=== PATIENT | female | born 1930 | race Caucasian/White ===

== ENCOUNTER 2018-02-25 15:40 | Inpatient (IN) | payer MEDICARE, MEDICAID ==
--- NOTE | 2018-02-25 15:49 | ED Physician Chart ---
ED Chief Complaint/HPI - Patient Information Date Seen:: 02/25/18 Time Seen:: 15:40 Chief Complaint:: Agitation History of Present Illness:: onset x 3 days of agitation and aggressive behavior; no report of SIs, trauma, H /As, LOC, ALOC, AMS, neck pain, C/P, SOB, Abd. Pain, A/N/V/D/C, fever, chills, or urinary s/s Allergies:: Allergies Allergy/AdvReac Type Severity Reaction Status Date / Time MDX No Known Allergies - Nka Allergy Verified 09/15/15 13:48 [No Known Allergies - Nka] Historian:: Patient, EMS Review:: Nurse's Note Reviewed, Old Chart Reviewed, EMS run form Reviewed ED Review of Systems - Review of Systems General/Constitutional: No fever, No chills, No weight loss, No weakness, No diaphoresis, No edema, No loss of appetite Skin: No skin lesions, No rash, No bruising Head: No headache, No light-headedness Eyes: No loss of vision, No pain, No diplopia ENT: No earache, No nasal drainage, No sore throat, No tinnitus Neck: No neck pain, No swelling, No thyromegaly, No stiffness, No mass noted Cardio Vascular: No chest pain, No palpitations, No PND, No orthopnea, No edema Pulmonary: No SOB, No cough, No sputum, No wheezing GI: No nausea, No vomiting, No diarrhea, No pain, No melena, No hematochezia, No constipation, No hematemesis G/U: No dysuria, No frequency, No hematuria, No nacturia Finishing Range Supervisor: No vaginal discharge, No abnormal vaginal bleed, No contraction Musculoskeletal: No bone or joint pain, No back pain, No muscle pain Endocrine: No polyuria, No polydipsia Psychiatric: Prior psych history, Depression, Anxiety, No suicidal ideation, No homicidal ideation, No auditory hallucination, No visual hallucination Hematopoietic: No bruising, No lymphadenopathy Allergic/Immuno: No urticaria, No angioedema Neurological: No syncope, No focal symptoms, No weakness, No paresthesia, No headache, No seizure, No dizziness, Confusion, No vertigo ED Past Medical History - Past Medical History Obtainable: Yes Past Medical History: HTN, Dementia Family History: HTN Social History: Non Smoker, No Alcohol, No Drug Use, Single, Care Facility Surgical History: None Psychiatricy History: Bipolar, Dementia Medication: Reviewed Family Medical History - Family Member Mother History Unknown: Yes Ethnicity: Living Status: Unknown Hx Family Cancer: (unknown) Hx Family Coronary Artery Disease: (unknown) Hx Family Congestive Heart Failure: (unknown) Hx Family Hypertension: (unknown) Hx Family Stroke: (unknown) Hx Family Diabetes: (unknown) Hx Family Seizures: (unknown) Hx Family Dementia: (unknown) Hx Family AIDS: (unknown) Hx Family HIV: No Hx Family COPD: (unknown) Hx Family Hepatitis: (unknown) Hx Family Psychiatric Problems: (unknown) Hx Family Tuberculosis: (unknown) ED Physical Exam - Physical Examination General/Constitutional: Awake, Well-developed, well-nourished, Alert, No distress, GCS 15, Non-toxic appearing, Ambulatory Head: Atraumatic Eyes: Lids, conjuctiva normal, PERRL, EOMI Skin: Nl inspection, No rash, No skin lesions, No ecchymosis, Well hydrated, No lymphadenopathy ENMT: External ears, nose nl, TM canals nl, Nasal exam nl, Lips, teeth, gums nl , Oropharynx nl, Tonsils nl Neck: Nontender, Full ROM w/o pain, No JVD, No nuchal rigidity, No bruit, No mass, No stridor Respiratory: Nl effort/Exclusion, Clear to Auscultation, No Wheeze/Rhonchi/Rales Cardio Vascular: RRR, No murmur, gallop, rubs, NL S1 S2, Carotid/Femoral/Distal pulses equal bilaterally GI: No tenderness/rebounding/guarding, No organomegaly, No hernia, Normal BS's, Nondistended, No mass/bruits, No McBurney tenderness : No CVA tenderness Extremities: No tenderness or effusion, Full ROM, normal strength in all extremities, No edema, Normal digits & nails Neuro/Psych: Alert/oriented, DTR's symmetric, Normal sensory exam, Normal motor strength, Judgement/insight normal, Mood normal, Normal gait, No focal deficits Other Neuro/Psych comments:: + Psychomotor Agitation; no SIs; Disoriented and confused; Mood/Affect: Stable Misc: Normal back, No paraspinal tenderness ED Labs/Radiology/EKG Results - Lab Results Comments:: unremarkable - EKG Interpretations EKG Time:: 16:15 Rate & Rhythm: 71; NSR Comments:: non-specific st-t changes ED Septic Shock - . Is Septic Shock (SBP<90, OR Lactate>4 mmol\L) present?: No ED Reassessment (Disposition) - Reassessment Reassessment Condition:: Improved - Diagnosis Diagnosis:: Agitation; Psychosis; Bipolar Disorder; Medical Clearance - Aftercare/Follow up Instructions Aftercare/Follow-Up Instructions:: Counseled pt regarding lab results/diagnosis & need follow up, Counseled pt & family regarding lab results/diagnosis & need follow up - Patient Disposition Discharge/Transfer:: Acute Care w/in this hosp Admitted to:: [facility] Condition at Disposition:: Stable, Improved
[2018-02-25 16:02] LABS: % EOSINOPHILS 1.5 % (0.0-5.0); % LYMPHOCYTES 36.2 % (20.0-50.0); % MONOCYTES 7.6 % (2.0-10.0); % NEUTROPHILS 54.7 % (40.0-80.0); EOSINOPHILE ABSOLUTE 0.1 Th/cmm (0.1-0.4); HEMATOCRIT 40.1 % (41.0-60); HEMOGLOBIN 13.6 gm/dL (12-16); LYMPHOCYTE ABSOLUTE 2.6 Th/cmm (1.5-3.0); MEAN CELL VOLUME 89.8 fl (81-100); MEAN CORPUSCULAR HEMOGLOBIN 30.4 pg (27.0-31.0); MEAN CORPUSCULAR HGB CONC 33.8 pg (28.0-36.0); MEAN PLATELET VOLUME 8.2 fl; MONOCYTE ABSOLUTE 0.5 Th/cmm (0.3-1.0); PLATELET COUNT 212 Th/cmm (150-400); RED BLOOD COUNT 4.46 Mil/cmm (3.80-5.20); RED CELL DISTRIBUTION WIDTH 13.2 % (11.5-20.0); WHITE BLOOD COUNT 7.2 Th/cmm (4.8-10.8)
[2018-02-25 16:18] LABS: ACETAMINOPHEN < 10.0 ug/mL (10.0-30.0); ALB/GLOB RATIO 1.2 (1.0-1.8); ALBUMIN 3.9 gm/dL (3.7-5.3); ALKALINE PHOSPHATASE 71 U/L (34-104); ANION GAP 11.7 (7.0-16.0); BILIRUBIN,TOTAL 0.2 mg/dL (0.3-1.0); BUN - UREA NITROGEN 22 mg/dL (7-25); CALCIUM SERUM 9.2 mg/dL (8.6-10.3); CARBON DIOXIDE 25.1 mEq/L (21.0-31.0); CHLORIDE 105 mEq/L (98-107); CHOLESTEROL 169 mg/dL (<200); CREATININE - SERUM 0.7 mg/dL (0.6-1.2); GLUCOSE 160 mg/dL (70-105); HDL -HIGH DENSITY LIPOPROTEIN 53 mg/dL (23-92); POTASSIUM SERUM 3.8 mEq/L (3.5-5.1); SALICYLATES (ASPIRIN) < 25.0 mg/L (30.0-100.0); SGOT 15 U/L (13-39); SGPT/ALT 13 U/L (7-52); SODIUM SERUM 138 mEq/L (136-145); TOTAL PROTEIN,SERUM 7.3 gm/dL (6.0-8.3); TRIGLYCERIDES 131 mg/dL (<150)
[2018-02-25 16:41] LABS: URINE MICROSCOPIC INDICATED? YES; URINE SOURCE CLEAN C
[2018-02-25 16:43] LABS: URINE BILIRUBIN NEGATIVE (NEGATIVE); URINE BLOOD NEGATIVE (NEGATIVE); URINE GLUCOSE (UA) NEGATIVE (NEGATIVE); URINE KETONE NEGATIVE (NEGATIVE); URINE LEUKOCYTE ESTERASE SMALL (NEGATIVE); URINE NITRATE NEGATIVE (NEGATIVE); URINE PROTEIN NEGATIVE (NEGATIVE); URINE UROBILINOGEN 0.2 E.U./dL (0.2 - 1.0)
[2018-02-25 16:47] LABS: URINE CLARITY CLEAR (CLEAR); URINE COLOR YELLOW
[2018-02-25 16:50] LABS: URINE BACTERIA NONE SEEN /hpf (NONE SEEN); URINE EPITHELIAL CELLS FEW /lpf (FEW); URINE RBC NONE SEEN /hpf (0-5); URINE WBC 0-2 /hpf (0-5)
[2018-02-25 17:01] LABS: AMPHETAMINE URINE NEGATIVE (NEGATIVE); BARBITURATES URINE NEGATIVE (NEGATIVE); BENZODIAZEPINES QUAL URINE NEGATIVE (NEGATIVE); CANNABINOID THC NEGATIVE (NEGATIVE); COCAINE METABOLITE QUAL URINE NEGATIVE (NEGATIVE); METHADONE URINE NEGATIVE (NEGATIVE); METHAMPHETAMINES QUAL URINE NEGATIVE (NEGATIVE); OPIATES (MORPHINE) QUAL. URINE NEGATIVE (NEGATIVE); PHENCYCLIDINE (PCP) URINE NEGATIVE (NEGATIVE); TRICYCLICS (TCA) QUAL. URINE NEGATIVE (NEGATIVE)
[2018-02-25 19:36] VITALS: BP 140/56
[2018-02-25] MEDS ORDERED: Magnesium Hydroxide (MOM) 30 mL UDC PO PRN ×2 (21:12→21:17)
[2018-02-25] MEDS ORDERED: Fleet Enema 135 mL RC PRN (21:17)
[2018-02-26] MEDS: Calcium Carb/Vit D 500 mg/200 U Tab PO SCH ×2 (09:31→09:39)
[2018-02-26] MEDS: Multivitamin w/ Minerals Tab PO SCH ×2 (09:31→09:39)
[2018-02-26] MEDS: Aspirin 81mg Chewable Tab PO SCH ×2 (09:31→09:37)
--- NOTE | 2018-02-26 12:09 | History & Physical ---
ADMIT DATE: 02/25/2018 IDENTIFYING INFORMATION: The patient is an 87-year-old female. CHIEF COMPLAINT: No information. HISTORY OF PRESENT ILLNESS: The patient was admitted because of increasing agitation, aggressive behavior, very agitated for the last 3 days prior to admission. There is no homicidal ideation. No report of suicidal ideation. The patient herself was a poor historian, talked to her through a senior firmware engineer, was a very poor historian, she was confused. I am not sure if she is demented or psychotic as she is unable to give information and she is 87 years of age, so she may as be demented. PAST PSYCHIATRIC HISTORY: Unobtainable. MEDICAL HISTORY: The patient also with a history also of bipolar disorder. FAMILY AND SOCIAL HISTORY: When I talked to her through a senior firmware engineer, she believes, she is in her 30s. She was unable to tell where she lives, why she is here. She is unable to tell how many children she has, so she is a poor historian. MENTAL STATUS EXAMINATION: The patient is appropriately dressed, not well groomed. She looked younger than her stated age though she seems to be confused, she believes she is in her 30s, unable to participate in memory testing ____ her long and short term memory is poor. Unable tell her age, where she live, why she is here. Insight and judgment is impaired. She was very agitated and psychotic upon admission. IMPRESSION: AXIS I: Psychosis, not otherwise specified, dementia. Her medical doctor deferred to the medical health insurance to get help. Negative poor coping skills. INITIAL TREATMENT PLAN: 1. The patient will be continued with the Namenda and Aricept, which she is on. We will examine the need for adding more medications for her. We will do group therapy, milieu therapy, and individual therapy. ESTIMATED LENGTH OF STAY: 3-7 days. DISCHARGE CRITERIA: Decreasing agitation, psychosis and after discharge, outpatient treatment. [facility]# [id number]
[2018-02-26 19:38] LABS: A1C % 5.9 % (4.0-6.0)
[2018-02-27] MEDS: Aspirin 81mg Chewable Tab PO SCH (08:28)
[2018-02-27] MEDS: Multivitamin w/ Minerals Tab PO SCH (08:28)
[2018-02-27] MEDS: Calcium Carb/Vit D 500 mg/200 U Tab PO SCH (08:28)
--- NOTE | 2018-02-27 14:35 | Internal Medicine Prog Note ---
Internal Medicine Subjective - Subjective Service Date: 02/27/18 ([facility] DICTATED [id number]) Internal Medicine Objective - Results Result Diagrams: 02/25/18 15:54 02/25/18 15:54 Recent Labs: Laboratory Last Values WBC 7.2 Th/cmm (4.8-10.8) 02/25/18 15:54 RBC 4.46 Mil/cmm (3.80-5.20) 02/25/18 15:54 Hgb 13.6 gm/dL (12-16) 02/25/18 15:54 Hct 40.1 % (41.0-60) L 02/25/18 15:54 MCV 89.8 fl (81-100) 02/25/18 15:54 MCH 30.4 pg (27.0-31.0) 02/25/18 15:54 MCHC Differential 33.8 pg (28.0-36.0) 02/25/18 15:54 RDW 13.2 % (11.5-20.0) 02/25/18 15:54 Plt Count 212 Th/cmm (150-400) 02/25/18 15:54 MPV 8.2 fl 02/25/18 15:54 Neutrophils % 54.7 % (40.0-80.0) 02/25/18 15:54 Lymphocytes % 36.2 % (20.0-50.0) 02/25/18 15:54 Monocytes % 7.6 % (2.0-10.0) 02/25/18 15:54 Eosinophils % 1.5 % (0.0-5.0) 02/25/18 15:54 Basophils % 0.0 % (0.0-2.0) 02/25/18 15:54 Sodium 138 mEq/L (136-145) 02/25/18 15:54 Potassium 3.8 mEq/L (3.5-5.1) 02/25/18 15:54 Chloride 105 mEq/L (98-107) 02/25/18 15:54 Carbon Dioxide 25.1 mEq/L (21.0-31.0) 02/25/18 15:54 Anion Gap 11.7 (7.0-16.0) 02/25/18 15:54 BUN 22 mg/dL (7-25) 02/25/18 15:54 Creatinine 0.7 mg/dL (0.6-1.2) 02/25/18 15:54 Est GFR ( Amer) TNP 02/25/18 15:54 Est GFR (Non-Af Amer) TNP 02/25/18 15:54 BUN/Creatinine Ratio 31.4 02/25/18 15:54 Glucose 160 mg/dL (70-105) H 02/25/18 15:54 Hemoglobin A1c % 5.9 % (4.0-6.0) 02/25/18 15:54 Calcium 9.2 mg/dL (8.6-10.3) 02/25/18 15:54 Total Bilirubin 0.2 mg/dL (0.3-1.0) L 02/25/18 15:54 AST 15 U/L (13-39) 02/25/18 15:54 ALT 13 U/L (7-52) 02/25/18 15:54 Alkaline Phosphatase 71 U/L (34-104) 02/25/18 15:54 Total Protein 7.3 gm/dL (6.0-8.3) 02/25/18 15:54 Albumin 3.9 gm/dL (3.7-5.3) 02/25/18 15:54 Globulin 3.4 gm/dL 02/25/18 15:54 Albumin/Globulin Ratio 1.2 (1.0-1.8) 02/25/18 15:54 Triglycerides 131 mg/dL (<150) 02/25/18 15:54 Cholesterol 169 mg/dL (<200) 02/25/18 15:54 LDL Cholesterol Direct 107 mg/dL (75-193) 02/25/18 15:54 HDL Cholesterol 53 mg/dL (23-92) 02/25/18 15:54 TSH 0.55 uIU/ml (0.34-5.60) 02/25/18 15:54 Urine Source CLEAN C 02/25/18 16:00 Urine Color YELLOW 02/25/18 16:00 Urine Clarity CLEAR (CLEAR) 02/25/18 16:00 Urine pH 6.0 (4.6 - 8.0) 02/25/18 16:00 Ur Specific [place] 1.025 (1.005-1.030) 02/25/18 16:00 Urine Protein NEGATIVE mg/dL (NEGATIVE) 02/25/18 16:00 Urine Glucose (UA) NEGATIVE mg/dL (NEGATIVE) 02/25/18 16:00 Urine Ketones NEGATIVE mg/dL (NEGATIVE) 02/25/18 16:00 Urine Blood NEGATIVE (NEGATIVE) 02/25/18 16:00 Urine Nitrate NEGATIVE (NEGATIVE) 02/25/18 16:00 Urine Bilirubin NEGATIVE (NEGATIVE) 02/25/18 16:00 Urine Urobilinogen 0.2 E.U./dL (0.2 - 1.0) 02/25/18 16:00 Ur Leukocyte Esterase SMALL (NEGATIVE) H 02/25/18 16:00 Urine RBC NONE SEEN /hpf (0-5) 02/25/18 16:00 Urine WBC 0-2 /hpf (0-5) 02/25/18 16:00 Ur Epithelial Cells FEW /lpf (FEW) 02/25/18 16:00 Urine Bacteria NONE SEEN /hpf (NONE SEEN) 02/25/18 16:00 Salicylates < 25.0 mg/L (30.0-100.0) L 02/25/18 15:54 Urine Opiates Screen NEGATIVE (NEGATIVE) 02/25/18 16:00 Urine Methadone Screen NEGATIVE (NEGATIVE) 02/25/18 16:00 Acetaminophen < 10.0 ug/mL (10.0-30.0) L 02/25/18 15:54 Ur Barbiturates Screen NEGATIVE (NEGATIVE) 02/25/18 16:00 Ur Tricyclics Screen NEGATIVE (NEGATIVE) 02/25/18 16:00 Ur Phencyclidine Scrn NEGATIVE (NEGATIVE) 02/25/18 16:00 Amphetamines Screen NEGATIVE (NEGATIVE) 02/25/18 16:00 U Methamphetamines Scrn NEGATIVE (NEGATIVE) 02/25/18 16:00 U Benzodiazepines Scrn NEGATIVE (NEGATIVE) 02/25/18 16:00 U Cocaine Metab Screen NEGATIVE (NEGATIVE) 02/25/18 16:00 U Cannabinoids Screen NEGATIVE (NEGATIVE) 02/25/18 16:00 Ethyl Alcohol < 10 mg/dL (0-10) 02/25/18 15:54 - Physical Exam Vitals and I&O: Vital Signs Temp 97.9 F 02/26/18 15:41 Pulse 73 02/26/18 15:41 Resp 20 02/26/18 15:41 BP 114/55 02/26/18 15:41 Pulse Ox 96 02/26/18 15:41 Intake & Output 02/26/18 02/27/18 02/27/18 18:59 06:59 18:59 Intake Total 960 Balance 960 Intake: Oral 960 Other: # Voids 3 # Bowel Movements 0 Active Medications: Current Medications Acetaminophen (Tylenol) 650 mg PO Q4HR PRN PRN Reason: Mild Pain / Temp above 100 Stop: 04/26/18 21:11 Acetaminophen (Tylenol) 325 mg PO Q6H PRN PRN Reason: Pain Stop: 04/26/18 21:16 Aspirin (Aspirin Chewable) 81 mg PO DAILY [facility] Stop: 04/27/18 08:59 Last Admin: 02/27/18 08:28 Dose: Not Given Bisacodyl (Dulcolax 10 Mg Supp) 10 mg RC DAILY PRN PRN Reason: IF MOM INEFFECTIVE Stop: 04/26/18 21:16 Calcium/Vitamin D (Oscal W/Vitamin D) 1 tab PO DAILY [facility] Stop: 04/27/18 08:59 Last Admin: 02/27/18 08:28 Dose: Not Given Divalproex Sodium (Depakote Er) 250 mg PO Q12HR MAC PRN Reason: Protocol Stop: 04/28/18 20:59 Docusate Sodium (Colace) 100 mg PO BID [facility] Stop: 04/27/18 08:59 Last Admin: 02/27/18 08:31 Dose: Not Given Donepezil HCl (Aricept) 10 mg PO HS MAC Stop: 04/27/18 20:59 Last Admin: 02/26/18 20:35 Dose: 10 mg Lorazepam (Ativan) 0.5 mg PO Q4HR PRN; Protocol PRN Reason: Anxiety Stop: 03/27/18 21:11 Magnesium Hydroxide (Milk Of Magnesia) 30 ml PO HS PRN PRN Reason: Constipation Magnesium Hydroxide (Milk Of Magnesia) 30 ml PO HS PRN PRN Reason: Constipation Stop: 04/26/18 21:16 Memantine (Namenda) 10 mg PO BID MAC Stop: 04/27/18 08:59 Last Admin: 02/27/18 08:28 Dose: Not Given Sodium Phosphate (Fleet Enema) 135 ml RC Q48H PRN PRN Reason: IF DULCOLAX INEFFECTIVE Stop: 04/26/18 21:16 Zolpidem Tartrate (Ambien) 5 mg PO HS PRN PRN Reason: Insomnia Stop: 04/26/18 21:11 - Procedures Procedures: Procedures Procedure Code Date GROUP PSYCHOTHERAPY 17876 09/15/15 GROUP PSYCHOTHERAPY [id number] 09/15/15 OTHER GROUP THERAPY 94.44 03/04/15
--- NOTE | 2018-02-27 15:44 | History & Physical ---
ADMIT DATE: 02/27/2018 CHIEF COMPLAINT: Agitation. HISTORY OF PRESENT ILLNESS: This is an 87-year-old female who is a [facility] resident who is admitted to the Geropsych Unit due to a 3-day history of agitation and aggressive behavior towards nursing staff. PAST MEDICAL HISTORY: Hypertension, dementia. FAMILY HISTORY: Noncontributory. SOCIAL HISTORY: The patient is a [facility] resident requiring 24-hour nursing care. SURGICAL HISTORY: Unknown. MEDICATIONS: Please see medications list. REVIEW OF SYSTEMS: GENERAL: Denies any fevers and chills. CARDIOVASCULAR: Denies chest pain. RESPIRATORY: Denies shortness of breath. GASTROINTESTINAL: Denies nausea, vomiting, abdominal pain. GENITOURINARY: Denies increased frequency or dysuria. NEUROLOGIC: Not headaches, seizures, or syncope. All other systems are reviewed and are negative. PHYSICAL EXAMINATION: GENERAL: The patient is well developed, well nourished, no acute distress. VITAL SIGNS: Temperature 97.9, heart rate 72, blood pressure 114/55, respirations 20, O2 96%. HEENT: Head; normocephalic, atraumatic. NECK: Supple. No mass. LUNGS: Clear bilaterally. HEART: Regular rate and rhythm. ABDOMEN: Soft, nontender. LABORATORY DATA: WBC 7.2, H and H 13.6 and 40.1, platelet of 212. Sodium 138, potassium 3.8, chloride 105, BUN 22, creatinine 0.7. ASSESSMENT: Hypertension, dementia, agitation and aggressive behavior. PLAN: Fall precautions will be initiated. We will continue to follow this patient. [facility]# [id number]
--- NOTE | 2018-02-27 17:42 | Progress Notes ---
DATE: 02/27/2018 Case was discussed with staff and patient's records. The patient continues to be unpredictable, impulsive, internally preoccupied, stays to herself. She also refused to take medication. When I talked to her about it she said no medicine. She is on Namenda and Aricept. The patient was very agitated prior to coming here. I will be adding a small dose of Depakote on her to help with her impulsivity and hopefully she will be willing to take it and aggressive behavior and we will continue outpatient group therapy, milieu therapy, adjust medication as needed. JOB# [id number]
[2018-02-28] MEDS: Aspirin 81mg Chewable Tab PO SCH (09:01)
[2018-02-28] MEDS: Calcium Carb/Vit D 500 mg/200 U Tab PO SCH (09:01)
[2018-02-28] MEDS: Multivitamin w/ Minerals Tab PO SCH (09:02)
--- NOTE | 2018-02-28 21:22 | Progress Notes ---
DATE: 02/28/2018 SUBJECTIVE: Case was discussed with the staff of the patient and reviewed records. The patient as reported by staff is isolating herself, continues to be unable to make a safe plan for her self-care, continues to be unpredictable, impulsive, needing redirection; however, in general her aggressive behavior is better. She is easier to redirect. She denies any current intent to harm herself or anyone. She has been refusing her medication and when I tried to talk to her about this, she would not give me any answer. She said she would not take any medication. Still working on discharge plan. She is on Aricept 10 mg at bedtime, Depakote 250 mg twice a day. She is not taking her medication, sometimes selective about taking it. She is also on Namenda 10 mg twice a day. I will continue the patient in group therapy, milieu therapy, and adjust medications as needed. JOB# [id number]
[2018-03-01] MEDS: Calcium Carb/Vit D 500 mg/200 U Tab PO SCH (09:07)
[2018-03-01] MEDS: Aspirin 81mg Chewable Tab PO SCH (09:07)
[2018-03-01] MEDS: Multivitamin w/ Minerals Tab PO SCH (09:08)
--- NOTE | 2018-03-01 10:13 | Progress Notes ---
DATE: 03/01/2018 SUBJECTIVE: The patient was seen in her room, lying in the bed. The patient is asleep but easily arousable; otherwise, the patient appears to be in no acute distress. Per staff nurses, the patient has been refusing to take her medication, but no aggressive behavior is noted at this time. OBJECTIVE: VITAL SIGNS: Temperature 99.7, heart rate 65, blood pressure 152/84, respiration of 18, and 97% on room air. HEENT: Head is atraumatic and normocephalic. Eyes: Bilateral conjunctivae are clear. Bilateral pupils are equally round and reactive. NECK: Supple. No JVD. CARDIOVASCULAR: S1 and S2, without murmur. PULMONARY: Clear to auscultation. GASTROINTESTINAL: Soft and nontender without guarding. Positive bowel sounds. MUSCULOSKELETAL: No clubbing. No cyanosis noted. ASSESSMENT: 1. Dementia. 2. Insomnia. 3. Osteoarthritis. PLAN: We will keep the patient inpatient. We will follow up with a psychiatrist to monitor the patient's condition and behavior. Treatment plans were discussed with the patient's nurse. Treatment has been discussed with Dr. Murphy. [facility]# [id number]
--- NOTE | 2018-03-01 17:18 | Progress Notes ---
DATE: SUBJECTIVE: The patient was seen and evaluated. The patient's chart reviewed. Nursing staff reported the patient being disengaged, withdrawn, refusing medications. Today on [id number] evaluation, the patient is extremely confused and does not know exactly where she is. She believes she in [place], but she is calm, cooperative in room. MENTAL STATUS EXAMINATION: Neurocognitively impaired, disengaged. ASSESSMENT AND PLAN: The patient is an 87-year-old female, severely neurocognitively impaired, disorganized. We will continue obtaining more collateral information and obtaining more information in regards to the patient's family as she continues to refuse her medications and nonredirectable. We will continue with the current medication and primary treatment and goals, which includes Aricept, Depakote and Namenda. JOB# [id number]
--- NOTE | 2018-03-02 10:09 | Progress Notes ---
DATE: 03/02/2018 The patient was seen and evaluated. The patient's chart reviewed. Covering for Dr. Dutton. Today on [id number] evaluation, the patient continues to be confused, does not know exactly where she is, but she has been redirectable, although denying medications. MENTAL STATUS EXAMINATION: Poor insight, neurocognitive impaired severe, needs a lot of ADL redirection. ASSESSMENT AND PLAN: The patient is an 87-year-old female, severely cognitively impaired, continue working very closely with the transplant case manager for a safe dispo. She needs a lot of ADL redirections to provide simple activities such as feeding, clothing. Therefore, gravely disabled secondary to the patient's severe neurocognitive impairment. JOB# [id number]
[2018-03-02] MEDS: Calcium Carb/Vit D 500 mg/200 U Tab PO SCH (11:09)
[2018-03-02] MEDS: Aspirin 81mg Chewable Tab PO SCH (11:09)
[2018-03-02] MEDS: Multivitamin w/ Minerals Tab PO SCH (11:09)
--- NOTE | 2018-03-02 11:31 | General Progress Note ---
Subjective - Review of Systems Events since last encounter: patient confused with no signs of pain noncompliant with meds Objective - Results Result Diagrams: 02/25/18 15:54 02/25/18 15:54 Recent Labs: Laboratory Last Values WBC 7.2 Th/cmm (4.8-10.8) 02/25/18 15:54 RBC 4.46 Mil/cmm (3.80-5.20) 02/25/18 15:54 Hgb 13.6 gm/dL (12-16) 02/25/18 15:54 Hct 40.1 % (41.0-60) L 02/25/18 15:54 MCV 89.8 fl (81-100) 02/25/18 15:54 MCH 30.4 pg (27.0-31.0) 02/25/18 15:54 MCHC Differential 33.8 pg (28.0-36.0) 02/25/18 15:54 RDW 13.2 % (11.5-20.0) 02/25/18 15:54 Plt Count 212 Th/cmm (150-400) 02/25/18 15:54 MPV 8.2 fl 02/25/18 15:54 Neutrophils % 54.7 % (40.0-80.0) 02/25/18 15:54 Lymphocytes % 36.2 % (20.0-50.0) 02/25/18 15:54 Monocytes % 7.6 % (2.0-10.0) 02/25/18 15:54 Eosinophils % 1.5 % (0.0-5.0) 02/25/18 15:54 Basophils % 0.0 % (0.0-2.0) 02/25/18 15:54 Sodium 138 mEq/L (136-145) 02/25/18 15:54 Potassium 3.8 mEq/L (3.5-5.1) 02/25/18 15:54 Chloride 105 mEq/L (98-107) 02/25/18 15:54 Carbon Dioxide 25.1 mEq/L (21.0-31.0) 02/25/18 15:54 Anion Gap 11.7 (7.0-16.0) 02/25/18 15:54 BUN 22 mg/dL (7-25) 02/25/18 15:54 Creatinine 0.7 mg/dL (0.6-1.2) 02/25/18 15:54 Est GFR ( Amer) TNP 02/25/18 15:54 Est GFR (Non-Af Amer) TNP 02/25/18 15:54 BUN/Creatinine Ratio 31.4 02/25/18 15:54 Glucose 160 mg/dL (70-105) H 02/25/18 15:54 Hemoglobin A1c % 5.9 % (4.0-6.0) 02/25/18 15:54 Calcium 9.2 mg/dL (8.6-10.3) 02/25/18 15:54 Total Bilirubin 0.2 mg/dL (0.3-1.0) L 02/25/18 15:54 AST 15 U/L (13-39) 02/25/18 15:54 ALT 13 U/L (7-52) 02/25/18 15:54 Alkaline Phosphatase 71 U/L (34-104) 02/25/18 15:54 Total Protein 7.3 gm/dL (6.0-8.3) 02/25/18 15:54 Albumin 3.9 gm/dL (3.7-5.3) 02/25/18 15:54 Globulin 3.4 gm/dL 02/25/18 15:54 Albumin/Globulin Ratio 1.2 (1.0-1.8) 02/25/18 15:54 Triglycerides 131 mg/dL (<150) 02/25/18 15:54 Cholesterol 169 mg/dL (<200) 02/25/18 15:54 LDL Cholesterol Direct 107 mg/dL (75-193) 02/25/18 15:54 HDL Cholesterol 53 mg/dL (23-92) 02/25/18 15:54 TSH 0.55 uIU/ml (0.34-5.60) 02/25/18 15:54 Urine Source CLEAN C 02/25/18 16:00 Urine Color YELLOW 02/25/18 16:00 Urine Clarity CLEAR (CLEAR) 02/25/18 16:00 Urine pH 6.0 (4.6 - 8.0) 02/25/18 16:00 Ur Specific [place] 1.025 (1.005-1.030) 02/25/18 16:00 Urine Protein NEGATIVE mg/dL (NEGATIVE) 02/25/18 16:00 Urine Glucose (UA) NEGATIVE mg/dL (NEGATIVE) 02/25/18 16:00 Urine Ketones NEGATIVE mg/dL (NEGATIVE) 02/25/18 16:00 Urine Blood NEGATIVE (NEGATIVE) 02/25/18 16:00 Urine Nitrate NEGATIVE (NEGATIVE) 02/25/18 16:00 Urine Bilirubin NEGATIVE (NEGATIVE) 02/25/18 16:00 Urine Urobilinogen 0.2 E.U./dL (0.2 - 1.0) 02/25/18 16:00 Ur Leukocyte Esterase SMALL (NEGATIVE) H 02/25/18 16:00 Urine RBC NONE SEEN /hpf (0-5) 02/25/18 16:00 Urine WBC 0-2 /hpf (0-5) 02/25/18 16:00 Ur Epithelial Cells FEW /lpf (FEW) 02/25/18 16:00 Urine Bacteria NONE SEEN /hpf (NONE SEEN) 02/25/18 16:00 Salicylates < 25.0 mg/L (30.0-100.0) L 02/25/18 15:54 Urine Opiates Screen NEGATIVE (NEGATIVE) 02/25/18 16:00 Urine Methadone Screen NEGATIVE (NEGATIVE) 02/25/18 16:00 Acetaminophen < 10.0 ug/mL (10.0-30.0) L 02/25/18 15:54 Ur Barbiturates Screen NEGATIVE (NEGATIVE) 02/25/18 16:00 Ur Tricyclics Screen NEGATIVE (NEGATIVE) 02/25/18 16:00 Ur Phencyclidine Scrn NEGATIVE (NEGATIVE) 02/25/18 16:00 Amphetamines Screen NEGATIVE (NEGATIVE) 02/25/18 16:00 U Methamphetamines Scrn NEGATIVE (NEGATIVE) 02/25/18 16:00 U Benzodiazepines Scrn NEGATIVE (NEGATIVE) 02/25/18 16:00 U Cocaine Metab Screen NEGATIVE (NEGATIVE) 02/25/18 16:00 U Cannabinoids Screen NEGATIVE (NEGATIVE) 02/25/18 16:00 Ethyl Alcohol < 10 mg/dL (0-10) 02/25/18 15:54 RPR NONREACTIVE (NONREACTIVE) 02/25/18 15:54 - Physical Exam Vitals and I&O: Vital Signs Temp 0 F 03/01/18 14:53 Pulse 65 02/28/18 21:13 Resp 18 02/28/18 21:13 BP 122/84 02/28/18 21:13 Pulse Ox 97 02/28/18 21:13 Intake & Output 03/01/18 03/02/18 03/02/18 18:59 06:59 18:59 Intake Total 480 480 Balance 480 480 Weight (lbs) 74.843 kg Intake: Oral 480 480 Other: # Voids 3 2 # Bowel Movements 0 Stool Characteristics Soft Formed Weight Source Bedscale Active Medications: Current Medications Acetaminophen (Tylenol) 650 mg PO Q4HR PRN PRN Reason: Mild Pain / Temp above 100 Stop: 04/26/18 21:11 Acetaminophen (Tylenol) 325 mg PO Q6H PRN PRN Reason: Pain Stop: 04/26/18 21:16 Aspirin (Aspirin Chewable) 81 mg PO DAILY [facility] Stop: 04/27/18 08:59 Last Admin: 03/02/18 11:09 Dose: Not Given Bisacodyl (Dulcolax 10 Mg Supp) 10 mg RC DAILY PRN PRN Reason: IF MOM INEFFECTIVE Stop: 04/26/18 21:16 Calcium/Vitamin D (Oscal W/Vitamin D) 1 tab PO DAILY MAC Stop: 04/27/18 08:59 Last Admin: 03/02/18 11:09 Dose: Not Given Divalproex Sodium (Depakote Er) 250 mg PO Q12HR MAC PRN Reason: Protocol Stop: 04/28/18 20:59 Last Admin: 03/02/18 11:09 Dose: Not Given Docusate Sodium (Colace) 100 mg PO BID [facility] Stop: 04/27/18 08:59 Last Admin: 03/02/18 11:09 Dose: Not Given Donepezil HCl (Aricept) 10 mg PO HS MAC Stop: 04/27/18 20:59 Last Admin: 03/01/18 21:10 Dose: Not Given Lorazepam (Ativan) 0.5 mg PO Q4HR PRN; Protocol PRN Reason: Anxiety Stop: 03/27/18 21:11 Magnesium Hydroxide (Milk Of Magnesia) 30 ml PO HS PRN PRN Reason: Constipation Magnesium Hydroxide (Milk Of Magnesia) 30 ml PO HS PRN PRN Reason: Constipation Stop: 04/26/18 21:16 Memantine (Namenda) 10 mg PO BID MAC Stop: 04/27/18 08:59 Last Admin: 03/02/18 11:09 Dose: Not Given Sodium Phosphate (Fleet Enema) 135 ml RC Q48H PRN PRN Reason: IF DULCOLAX INEFFECTIVE Stop: 04/26/18 21:16 Zolpidem Tartrate (Ambien) 5 mg PO HS PRN PRN Reason: Insomnia Stop: 04/26/18 21:11 - Procedures Procedures: Procedures Procedure Code Date GROUP PSYCHOTHERAPY 31514 09/15/15 GROUP PSYCHOTHERAPY [id number] 09/15/15 OTHER GROUP THERAPY 94.44 03/04/15 Assessment/Plan - Problem List Patient Problems: All Active Problems AGITATION WITH CONFUSION (Acute) Nutritional Asmnt/Malnutr-PDOC - Dietary Evaluation Malnutrition Findings (Please click <Entered> for more info): Nutritional Asmnt/Malnutrition Start: 03/01/18 15: 03 Text: Status: Complete Freq: Document 03/01/18 15:03 NAZANIN (Rec: 03/01/18 15:10 NAZANIN [email or web address]) Nutritional Asmnt/Malnutrition Patient General Information Nutritional Screening Moderate Risk Diagnosis psychosis Pertinent Medical Hx/Surgical Hx bipolar, HTN, dementia Subjective Information Pt seen sleeping at time of visit. Per EMR, PO itnake 75- 100%. Current Diet Order/ Nutrition Support regular Pertinent Medications oscal w/vit D, colace Pertinent Labs 4/3 glucose 160, A1c 5.9 Nutritional Hx/Data Height 1.55 m Height (Calculated Centimeters) 154.9 Current Weight (lbs) 74.843 kg Weight (Calculated Kilograms) 74.8 Weight (Calculated Grams) 59093.7 [place] Body Weight 105 Body Mass Index (BMI) 31.1 Weight Status Obese GI Symptoms GI Symptoms None Last BM 4/6 Difficult in: None Skin Integrity/Comment: intact Current %PO Good (75-100%) Estimated Nutritional Goals BEE in Kcals: Adj wt of IBW Calories/Kcals/Kg 25-30 Kcals Calculated 0475-0964 Protein: Adj wt of IBW Protein g/k-1.1 Protein Calculated 55-61 Fluid: ml 1375-1650ml (1ml/kcal) Nutritional Problem No current Nutrition Prob Problem n/A Intervention/Recommendation Comments 1. Continue with current diet as ordered. If blood sugar continue high, will consider CCHO-60gm diet. 2. Monitor PO intake, wt, labs and skin integrity 3. F/U as low risk in 7 days, 03/08 Expected Outcomes/Goals Expected Outcomes/Goals 1. PO intake to meet at least 75% of nutritional needs. 2. Wt stability, skin to remain intact, labs to approach WNL.
--- NOTE | 2018-03-03 12:34 | Progress Notes ---
DATE: SUBJECTIVE: The patient seen, chart reviewed, discussed with staff. The patient is currently in the hospital, confused, behavioral disturbances, increased agitation. I did review the intake notes. I did review notes over the past few days including Dr. Cevallos's notes for the weekend. It seems the patient has been remaining confused, but calm. Staff noting she is more redirectable. Eating well, sleeping well, mostly keeps to herself. No agitation, no dangerous behaviors, taking her medications. Medications were reviewed including doses and frequencies. ASSESSMENT: The patient allowing ADLs. Fair eye contact. Awake, alert, but confused. No SI, no HI, no intent, no plan. No psychotic symptoms. Mood "pretty good." Affect constricted, better insight, better impulse control. PLAN: Placement has been confirmed. We will discharge today. JOB# [id number]
[2018-03-03] MEDS: Aspirin 81mg Chewable Tab PO SCH (15:39)
[2018-03-03] MEDS: Calcium Carb/Vit D 500 mg/200 U Tab PO SCH (15:41)
[2018-03-03] MEDS: Multivitamin w/ Minerals Tab PO SCH (15:45)
== END 2018-03-03 14:40 | DRG 885 ==
LOC: ER 15:40 → GERO2 17:00
PROVIDERS: ADMIT Psychiatry & Neurology Psychiatry; ATTEND Psychiatry & Neurology Psychiatry
DX: F29 Unspecified psychosis not due to a substance or known physiological condition (principal); F03.91 Unspecified dementia, unspecified severity, with behavioral disturbance; F31.9 Bipolar disorder, unspecified; I10 Essential (primary) hypertension; R45.1 Restlessness and agitation; M19.90 Unspecified osteoarthritis, unspecified site; G47.00 Insomnia, unspecified
CPT/HCPCS: 36415-UA; 80053-TC; 80061-TC; 80307; 80320-TC; 80329-TC; 81001-TC; 83036-90; 84443-TC; 85025-TC; 86592-TC; 93005; Z7610